=== PATIENT | male | born 1975 | race Caucasian/White ===

== ENCOUNTER 2016-08-24 23:31 | Emergency (ER) | payer OTHER ==
[~2016-08-24] VITALS: Ht 165.1 cm; Wt 68.0 kg
[~2016-08-24 23:31] MED LIST: ALPR2TAB7 PO; AMPH20TA3 PO; GABA400C PO; PARO40TA PO
--- NOTE | 2016-08-25 00:30 | NUR ---
Patient discharged to home in stable conditon. Written and verbal after care instructions given. Patient verbalizes understanding of instructions.
== END 2016-08-25 00:31 | disposition home or self-care (01) ==
LOC: ER 23:31
DX: B30.9 Viral conjunctivitis, unspecified (principal); F32.9 Major depressive disorder, single episode, unspecified
CPT/HCPCS: A4663

== ENCOUNTER 2016-09-28 09:43 | Inpatient (IN) | payer OTHER ==
[~2016-09-28] VITALS: Ht 165.1 cm; Wt 63.5 kg
[2016-09-28] MEDS ORDERED: DIAZ10TA PO (10:22)
[2016-09-28] MEDS ORDERED: IV NORMAL SALINE 1000 ML BAG IV ONE ×2 (10:30→12:15)
[2016-09-28] MEDS ORDERED: DIAZEPAM 2 MG TABLET PO ONE (10:30)
[2016-09-28 10:41] LABS: EOSINOPHILS # (AUTO) 0.1 K/uL (0.0-0.7); EOSINOPHILS % (AUTO) 0.5 % (0.0-7.0); HEMOGLOBIN 17.3 G/DL (14.0-18.0)
[2016-09-28] MEDS ORDERED: DIAZEPAM 5 MG TABLET ONE (10:44)
[2016-09-28 10:45] LABS: BASOPHILS # (AUTO) 0.3 K/uL (0.0-8.0); BASOPHILS % (AUTO) 1.1 % (0.0-2.0); HEMATOCRIT 49.5 % (40-50); LYMPHOCYTES # (AUTO) 0.7 K/UL (0.8-4.8); LYMPHOCYTES % (AUTO) 2.5 % (20.5-51.5); MEAN CORPUSCULAR HEMOGLOBIN 30.7 UUG (27.0-31.0); MEAN CORPUSCULAR HGB CONC 35 g/dL (32.0-37.0); MONOCYTES % (AUTO) 3.9 % (0.0-11.0); NEUTROPHILS # (AUTO) 24.2 K/UL (1.8-8.9); PLATELET COUNT (AUTO) 279 K/UL (150-450); RED BLOOD CELL COUNT(AUTO) 5.62 MIL/UL (4.7-6.1)
[2016-09-28 10:47] LABS: CREATININE 1.3 mg/dL (0.6-1.3); POTASSIUM 4.6 mmol/L (3.5-5.1)
[2016-09-28 10:54] LABS: BILIRUBIN,DIRECT 0.2 mg/dL (0.0-0.2); BILIRUBIN,TOTAL 1.4 mg/dL (0.1-1.0); TOTAL PROTEIN, SERUM 6.7 g/dL (6.4-8.2); WHITE BLOOD COUNT (AUTO) 26.4 K/UL (4.0-11.2)
[2016-09-28 11:33] LABS: BAND % (MANUAL) 62 % (0-10); EOSINOPHILS % (MANUAL) 1 % (0-8); LYMPHOCYTES % (MANUAL) 1 % (20-40); METAMYELOCYTES % 5 % (0-1); MONOCYTES % (MANUAL) 5 % (2-10); NEUTROPHILS % (MANUAL) 26 % (42-75)
[2016-09-28] MEDS ORDERED: METRONIDAZOLE 500 MG/NS 100 ML PIGGYBACK IV ONE (12:30)
[2016-09-28] MEDS ORDERED: METRONIDAZOLE 500 MG/NS 100ML 100 ML IV ONE (12:44)
[2016-09-28] MEDS ORDERED: LEVOFLOXACIN 750 MG/D5W 150 ML PIGGYBACK IV ONE (13:45)
--- NOTE | 2016-09-28 13:46 | NUR ---
Code sepsis activated per Dr Arriaga order.
--- NOTE | 2016-09-28 13:49 | NUR ---
RN TACTICAL RESPONSE GROUP OFFICER NOTIFIED ABOUT CODE SEPSIS.
[2016-09-28] MEDS ORDERED: LEVOFLOXACIN 750MG/D5W 150 ML IV ONE (13:59)
[2016-09-28] MEDS ORDERED: ACETAMINOPHEN 325 MG TABLET PO PRN (14:30)
[2016-09-28] MEDS ORDERED: PANTOPRAZOLE SODIUM 40 MG TABLET.DR PO SCH (14:30)
--- NOTE | 2016-09-28 16:00 | NUR ---
NEW PATIENT FROM ER TO ROOM 219 AWAKE ALERT COOPERATE WELL KEKE WEAK AND DEHYDRATION VS TAKEN STABLE ON FALL PRECAUTION CALL ALBERT IN REACH
[2016-09-28] MEDS: ONDANSETRON 4 MG/2 ML VIAL IV PRN ×2 (16:11→18:38)
[2016-09-28] MEDS ORDERED: ONDANSETRON 4 MG/2 ML VIAL ONE (16:20)
[2016-09-28 16:25] VITALS: BP 114/69
[2016-09-28] MEDS ORDERED: Medication Not On Formulary EA (Amphet Asp/Amphet/D-Amphet (Adderall 20 Mg Tablet) 20 MG PO SCH (17:00)
[2016-09-28] MEDS: IV NS 1000 ML 1,000 ML IV PRN (17:34)
[2016-09-28] MEDS: PAROXETINE HCL 20 MG TABLET PO SCH (17:34)
[2016-09-28] MEDS: GABAPENTIN 400 MG CAPSULE PO SCH ×2 (17:34→23:46)
[2016-09-28] MEDS: DIAZEPAM 10 MG TABLET PO SCH (17:34)
--- NOTE | 2016-09-28 18:30 | NUR ---
RESTING NO ACUTE DISTRESS SAFETY MEASURE PROVIDED CALL LIGHT WITHIN REACH AND INSTRUCTION TO CALL WHEN NEEDED
--- NOTE | 2016-09-28 18:38 | NUR ---
C/O OF N/V MED PRN GIVEN AND URINE SPECIMEN SENT TO LAB ORDER
--- NOTE | 2016-09-28 19:30 | NUR ---
RECEIVED PT IN BED, ASLEEP, AROUSABLE TO TOUCH AND NAME. IN NO ACUTE SIGNS OF DISTRESS. IVF INFUSING. SAFETY OBSERVED. CALL LIGHT WITHIN REACH.
[2016-09-28 20:00] VITALS: BP 99/48
[2016-09-28] MEDS ORDERED: METRONIDAZOLE 500 MG/NS 100ML 500 MG in PREMIXED 1 EACH IV SCH (21:00)
[2016-09-28] MEDS: METRONIDAZOLE 500 MG/NS 100ML 500 MG in PREMIXED 1 EACH IV SCH (21:28)
[2016-09-28] MEDS: MORPHINE SULFATE 2 MG/1 ML DISP.SYRIN IV PRN (21:42)
[2016-09-28 22:09] LABS: *BILIRUBIN,URIN NEGATIVE (NEGATIVE); *BLOOD, URINE NEGATIVE (NEGATIVE); *CLARITY,URINE CLEAR (CLEAR); *COLOR,URINE YELLOW (YELLOW); *KETONES,URINE NEGATIVE (NEGATIVE); *PROTEIN,URINE NEGATIVE (NEGATIVE); *UROBILINOGEN,URINE 0.2 E.U./dl (NORMAL); LEUKOCYTE ESTERASE ,URINE NEGATIVE (NEGATIVE); NITRITE, URINE NEGATIVE (NEGATIVE); PH,URINE 6.5 (5.0-8.0); UGLUCOSE NEGATIVE (NEGATIVE)
[2016-09-28 22:15] LABS: BACTERIA,URINE NONE SEEN /HPF (NONE SEEN); RBC,URINE 0-3 /HPF (0-3); SQUAMOUS EPITHELIAL CELL,UR NONE SEEN /HPF (NONE SEEN); WBC,URINE 0-3 /HPF (0-3)
[2016-09-29] VITALS (10 sets, daily range): BP systolic 85–115; BP diastolic 41–64
[2016-09-29] MEDS: IV NS 1000 ML 1,000 ML IV PRN ×2 (04:50→21:09)
[2016-09-29] MEDS: GABAPENTIN 400 MG CAPSULE PO SCH ×3 (05:53→17:27)
[2016-09-29] MEDS: METRONIDAZOLE 500 MG/NS 100ML 500 MG in PREMIXED 1 EACH IV SCH (05:53)
[2016-09-29] MEDS: PANTOPRAZOLE SODIUM 40 MG TABLET.DR PO SCH (06:01)
--- NOTE | 2016-09-29 06:25 | NUR ---
END OF SHIFT NOTE: PT SLEPT MOST SHIFT. C/O HEADACHE LAST NIGHT, WAS GIVEN MS 2MG REQUESTED AND PRESCRIBED. NO FURTHER C/O PAIN AT THIS TIME. IVF STILL INFUSING. HAD BM, LIQUID IN CONSISTENCY, X3. PT IS AMBULATORY WITH STANDBY ASSISTANCE. SAFETY MAINTAINED. CALL LIGHT WITHIN REACH.
[2016-09-29 07:19] LABS: BILIRUBIN,TOTAL 0.6 mg/dL (0.2-1.0); CREATININE 0.9 mg/dL (0.6-1.3); MAGNESIUM 1.8 mg/dL (1.8-2.4); PHOSPHOROUS 1.8 mg/dL (2.5-4.9); POTASSIUM 3.6 mmol/L (3.5-5.1); TOTAL PROTEIN, SERUM 4.9 g/dL (6.4-8.2)
[2016-09-29 07:21] LABS: BASOPHILS % (AUTO) 0.1 % (0.0-2.0); EOSINOPHILS # (AUTO) 0.7 K/uL (0.0-0.7); EOSINOPHILS % (AUTO) 4.1 % (0.0-7.0); LYMPHOCYTES # (AUTO) 0.7 K/UL (0.8-4.8); LYMPHOCYTES % (AUTO) 4.5 % (20.5-51.5); MEAN CORPUSCULAR HEMOGLOBIN 30.3 UUG (27.0-31.0); MEAN CORPUSCULAR HGB CONC 34 g/dL (32.0-37.0); MEAN CORPUSCULAR VOLUME 89.3 FL (82.0-92.0); MONOCYTES # (AUTO) 0.4 K/UL (0.1-1.30); MONOCYTES % (AUTO) 2.7 % (0.0-11.0); NEUTROPHILS # (AUTO) 14.2 K/UL (1.8-8.9); NEUTROPHILS % (AUTO) 88.6 % (38.5-71.5); PLATELET COUNT (AUTO) 244 K/UL (150-450)
[2016-09-29 07:24] LABS: RED BLOOD CELL COUNT(AUTO) 3.94 MIL/UL (4.7-6.1)
[2016-09-29 07:25] LABS: HEMATOCRIT 35.2 % (40-50); HEMOGLOBIN 11.9 G/DL (14.0-18.0)
[2016-09-29 07:33] LABS: THYROID STIMULATING HORMONE 1.318 mIU/mL (0.358-3.740)
[2016-09-29] MEDS: PAROXETINE HCL 20 MG TABLET PO SCH (08:21)
[2016-09-29] MEDS: DIAZEPAM 10 MG TABLET PO SCH ×2 (08:24→17:28)
[2016-09-29] MEDS: MORPHINE SULFATE 2 MG/1 ML DISP.SYRIN IV PRN ×3 (08:25→21:38)
[2016-09-29] MEDS: ONDANSETRON 4 MG/2 ML VIAL IV PRN (08:42)
[2016-09-29] MEDS ORDERED: IV NORMAL SALINE 500 ML BAG IV ONE (09:45)
[2016-09-29] MEDS ORDERED: IV NORMAL SALINE 500 ML IV ONE (09:45)
--- NOTE | 2016-09-29 10:09 | NUR ---
NS 500 BOLUS STARTED ORDERED PHOS LEVEL IS 1.5 WITH NEW ORDERS AND NOTED.
[2016-09-29 10:44] LABS: BAND % (MANUAL) 30 % (0-10); EOSINOPHILS % (MANUAL) 3 % (0-8); LYMPHOCYTES % (MANUAL) 5 % (20-40); METAMYELOCYTES % 2 % (0-1); MONOCYTES % (MANUAL) 6 % (2-10); NEUTROPHILS % (MANUAL) 54 % (42-75)
[2016-09-29] MEDS: POTASSIUM PHOSPHATE MM 7.5 MMOL in IV DEXTROSE 5% 100 ML IV SCH ×2 (11:47→16:47)
--- NOTE | 2016-09-29 11:50 | NUR ---
CALL RECEIVED FROM [facility] PATIENT IS POSITIVE FOR C DIFF IN STOOL CRESCENCIO DOUBLE SPINDLE SHAPER OPERATOR NOTIFIED STATED OKAY WILL SEE PATIENT.
[2016-09-29] MEDS ORDERED: VANCOMYCIN FOR PO/GT/NG USE PO SCH (12:15)
[2016-09-29 12:18] LABS: IRON, SERUM 17 ug/dL (50-175)
--- NOTE | 2016-09-29 12:20 | NUR ---
BLOOD PRESSURE AT THIS TIME IS 87/49 AND HEART RATE IS 115 PATIENT ALREADY RECEIVED NORMAL SALINE BOLUS ORDERED.NOTIFIED CRESCENCIO CLINICAL EDUCATION COORDINATOR AND SHE STATED TO TRANSFER PATIENT TO ICU/CCU TO START LEVOPHED PATIENT AWARE CALLED THE VICE CHANCELLOR AND NOTIFIED HER FOR BED.
[2016-09-29] MEDS: FERROUS SULFATE 325 MG TABEC PO SCH ×2 (12:28→23:48)
[2016-09-29] MEDS ORDERED: NOREPINEPHRINE BITARTRATE 8 MG in IV DEXTROSE 5% 500 ML IV PRN (12:30)
--- NOTE | 2016-09-29 12:40 | NUR ---
THE DOOR TECHNICIAN IS HERE AND PATIENTS CURRENT BLOOD PRESSURE IS 103/59 AND SHE STATED THAT PATIENTS BLOOD PRESSURE IS BETTER STATED TO OBSERVE THE PATIENT FUTHER.
--- NOTE | 2016-09-29 13:20 | NUR ---
BLOOD PRESSURE IS 110/60 CRESCENCIO DYNAMO REPAIRER NOTIFIED AND SHE STATED TO GO AHEAD AND LEAVE THE PATIENT HERE FOR NOW AND TRANSFER HIM TO TELEMETRY.
[2016-09-29] MEDS ORDERED: LEVOFLOXACIN 500 MG/D5W 500 MG in PREMIXED 1 EACH IV SCH (14:00)
[2016-09-29 17:15] LABS: HEMOGLOBIN 7.5 G/DL (14.0-18.0)
[2016-09-29 17:30] LABS: HEMATOCRIT 21.4 % (40-50)
--- NOTE | 2016-09-29 17:50 | NUR ---
CURRENT BLOOD PRESSURE IS 110/56 REMAIN ON KPHOS ORDERED WITH IVF AT 125ML/H.NEW IV SITE PLACED TO HIS LEFT FOREARM BY ED NURSE PATIENT HAS POOR VEINOUS ACCESS MID LINE RN WAS CALLED BECAUSE 2 NURSES TRIED TO INSERT TO NO AVAIL BUT NOW HE HAS A NEW SITE SO THE MID LINE RN SERVICES WAS CANCELLED AT THIS TIME.
[2016-09-29] MEDS: VANCOMYCIN FOR PO/GT/NG USE PO SCH (17:54)
--- NOTE | 2016-09-29 18:00 | NUR ---
CALL RECEIVED FROM LAB H/H IS 7.5/21.4 CALLED AND NOTIFIED CRESCENCIO AIR CHIEF MARSHAL WITH NEW ORDERS AND NOTED.SHE STATED THAT SHE ALREADY LEFT A MESSAGE WITH THE GI DOCTOR TO SEE PATIENT.
--- NOTE | 2016-09-29 18:12 | NUR ---
PATIENT NOTIFIED THAT HE HAS ORDER FOR BLOOD TRANSFUSSION AND ASKED HIM TO SIGN THE CONSCENT TO TRANSFUSION AND HE STATED THAT HE WILL THINK ABOUT IT BUT FOR NOW DOES NOT THINK THAT HE WILL AGREE TO RECEIVE BLOOD.
--- NOTE | 2016-09-29 18:41 | NUR ---
PATIENT REQUESTED NAUSEA MEDICATION AND I WENT INTO HIS ROOM TO GIVE IT TO HIM AND HE STATED THAT HE VOMITED ALREADY AND DOES NOT NEED IT ANYMORE ENCOURAGED PATIENT TO TAKE IT TO PREVENT FUTHER EMESIS AND HE DECLINED SO I WASTED THE MEDICATION.
--- NOTE | 2016-09-29 19:40 | NUR ---
patient received in bed resting comfortably. AOx3. Pt is receiving potassium in left forearm as ordered, tolerating well. observed to be groggy but arousable, pt requesting pain medication but educated about low blood pressure. No acute distress noted. Bed in low and locked position. No acute distress noted. Will continue to monitor for safety.
--- NOTE | 2016-09-29 21:05 | NUR ---
patient received 1 unit PRBC at this time in right AC, tolerating well. No s/s adverse reaction noted. vital signs being taken as per protocol. No acute distress noted. Will continue to monitor for safety.
[2016-09-29] MEDS: ACIDOPHILUS/BULGARICUS CHEW TAB PO SCH (23:48)
[2016-09-30] VITALS (9 sets, daily range): BP systolic 92–114; BP diastolic 53–70
[2016-09-30] MEDS: GABAPENTIN 400 MG CAPSULE PO SCH ×4 (00:14→17:04)
[2016-09-30] MEDS: METRONIDAZOLE 500 MG/NS 100ML 500 MG in PREMIXED 1 EACH IV SCH ×4 (00:15→21:33)
[2016-09-30] MEDS: VANCOMYCIN FOR PO/GT/NG USE PO SCH ×4 (00:20→17:04)
--- NOTE | 2016-09-30 00:30 | NUR ---
Pt done received 1 unit PRBC via right AC, tolerated well. Vital signs monitored as per hospital protocol. No acute distress noted.
--- NOTE | 2016-09-30 00:47 | NUR ---
Pt currently receiving second unit PRBC as ordered. Initial vital signs taken. No acute distress noted. Pt sleeping at this time but arousable. Will continue to monitor for safety.
[2016-09-30] MEDS: MORPHINE SULFATE 2 MG/1 ML DISP.SYRIN IV PRN ×3 (01:40→11:17)
--- NOTE | 2016-09-30 03:50 | NUR ---
Patient is done receiving second unit PRBC as ordered, pt tolerated well. Vital signs wnl. Currently resting comfortably in bed. No acute distress noted. Will continue to monitor for safety.
[2016-09-30] MEDS: IV NS 1000 ML 1,000 ML IV PRN ×2 (05:57→17:59)
[2016-09-30] MEDS: PANTOPRAZOLE SODIUM 40 MG TABLET.DR PO SCH (06:07)
[2016-09-30 06:54] LABS: EOSINOPHILS # (AUTO) 0.9 K/uL (0.0-0.7); EOSINOPHILS % (AUTO) 4.6 % (0.0-7.0); HEMATOCRIT 41.2 % (40-50); HEMOGLOBIN 14.2 G/DL (14.0-18.0); LYMPHOCYTES # (AUTO) 0.9 K/UL (0.8-4.8); LYMPHOCYTES % (AUTO) 4.7 % (20.5-51.5); MEAN CORPUSCULAR HEMOGLOBIN 30.3 UUG (27.0-31.0); MEAN CORPUSCULAR HGB CONC 34 g/dL (32.0-37.0); MEAN CORPUSCULAR VOLUME 88.2 FL (82.0-92.0); MONOCYTES # (AUTO) 0.5 K/UL (0.1-1.30); MONOCYTES % (AUTO) 2.7 % (0.0-11.0); NEUTROPHILS # (AUTO) 17.6 K/UL (1.8-8.9); PLATELET COUNT (AUTO) 232 K/UL (150-450); RED BLOOD CELL COUNT(AUTO) 4.67 MIL/UL (4.7-6.1); WHITE BLOOD COUNT (AUTO) 19.9 K/UL (4.0-11.2)
[2016-09-30 06:55] LABS: CREATININE 0.7 mg/dL (0.6-1.3); MAGNESIUM 1.8 mg/dL (1.8-2.4); PHOSPHOROUS 2.5 mg/dL (2.5-4.9); POTASSIUM 3.5 mmol/L (3.5-5.1); TOTAL PROTEIN, SERUM 4.8 g/dL (6.4-8.2)
--- NOTE | 2016-09-30 07:08 | NUR ---
Patient awake in bed restless, getting out of bed to use restroom. IV fluids running in right AC. No acute distress noted. Safety measures maintained.
[2016-09-30 07:20] LABS: HEMATOCRIT 39.9 % (40-50); HEMOGLOBIN 14.1 G/DL (14.0-18.0)
[2016-09-30] MEDS: ACIDOPHILUS/BULGARICUS CHEW TAB PO SCH ×2 (08:08→20:18)
[2016-09-30] MEDS: FERROUS SULFATE 325 MG TABEC PO SCH ×2 (08:08→20:18)
[2016-09-30] MEDS: PAROXETINE HCL 20 MG TABLET PO SCH (08:08)
[2016-09-30] MEDS: DIAZEPAM 10 MG TABLET PO SCH ×2 (08:08→17:04)
--- NOTE | 2016-09-30 08:15 | NUR ---
AWAKE ALERT AND ORIENTED REMAIN ON CONTACT ISOLATION ORDERED AND PATIENT EDUCATED ON GOOD HAND WASHING ESPECIALLY AFTER USING THE BATHROOM AND HE EXPRESSED UNDERSTANDING.REMAIN ON IVF ORDERED TO HIS RIGHT ARM WITH NO S/S OF INFILTERATION AT THIS TIME.S/P BLOOD TRANSFUSSION WITH NO ADVERSE OR ALLERGIC REACTIONS AT THIS TIME DUE MEDICATIONS GIVEN AND MADE COMFORTABLE.
[2016-09-30 08:42] LABS: *OCCULT BLOOD STOOL POSITIVE (NEGATIVE)
--- NOTE | 2016-09-30 09:30 | NUR ---
PATIENT SEEN BY THE GI DR VERDIN WITH NO NEW ORDERS AT THIS TIME.
[2016-09-30 09:40] LABS: NEUTROPHILS % (MANUAL) 65 % (42-75)
[2016-09-30 09:41] LABS: BAND % (MANUAL) 21 % (0-10); EOSINOPHILS % (MANUAL) 4 % (0-8); LYMPHOCYTES % (MANUAL) 7 % (20-40); MONOCYTES % (MANUAL) 3 % (2-10)
--- NOTE | 2016-09-30 10:15 | NUR ---
DR BROOKS ID HERE TO SEE PATIENT WITH NEW ORDERS AND NOTED.
--- NOTE | 2016-09-30 11:29 | NUR ---
PATIENT SEEN BY DR KHAN WITH NEW ORDERS AND NOTED
[2016-09-30] MEDS ORDERED: MORPHINE SULFATE 2 MG/1 ML DISP.SYRIN IV PRN (14:30)
[2016-09-30] MEDS ORDERED: MORPHINE SULFATE 2 MG/1 ML DISP.SYRIN IV ONE (14:30)
--- NOTE | 2016-09-30 14:30 | NUR ---
PATIENT IS STANDING IN THE MIDDLE OF THE HALLWAY YELLING AND SCREAMING AT THE TOP OF HIS VOICE HE WAS GIVEN MORPHINE AT AFTER 1100 HIS ORDER IS Q4H PATIENT STATED THAT THIS PAIN IS UNBEARABLE AND UNABLE TO WAIT FOR ONE MORE HOUR SO I CALLED DR KHAN SPOKE WITH HIM WITH THE ORDER CHANGED TI INCREASE DOSE AND DECREASE FREQUENCY AND NOTED.
[2016-09-30] MEDS: MORPHINE SULFATE 4 MG/1 ML DISP.SYRIN IV PRN ×2 (17:58→21:32)
--- NOTE | 2016-09-30 18:00 | NUR ---
PATIENT CONTINUE TO REQUIRE PAIN MEDICATIONS ORDERED GETS ANGRY AND SCREAMS FOR THE MEDICATION TO BE BROUGHT TO HIM STATED WANTS TO BE SLEEPING ALL THE TIME PATIENT EDUCATED ON MEDICATION SIDE EFFECTS ETC AND HE EXPRESSED UNDERSTANDING.
--- NOTE | 2016-09-30 20:00 | NUR ---
AWAKE,ALERT,MOTHER CAME TO VISIT SON.MOTHER WANTS MORE MEDICATION,MORE VALIUM AND PAIN MEDICATION,CALLED DR KHAN,NO MEDICATIONS ORDERED,PT SLEEPS ON AND OFF.PT WAS TRANSFERRED TO ANOTHER ROOM ,COMPLAINT OF ROOMMATE TOO NOISY.MOTHER AT THE DOORGIVING EMOTIONAL SUPPORT TO HIS SON.PT CONTINOUS TO HAVE LOOSE MOVEMENT.
--- NOTE | 2016-09-30 21:00 | NUR ---
DR MARQUEZ SEEN PT,TALK WITH DR MARQUEZ.
[2016-10-01] MEDS: GABAPENTIN 400 MG CAPSULE PO SCH ×5 (00:17→23:17)
[2016-10-01] MEDS: VANCOMYCIN FOR PO/GT/NG USE PO SCH ×5 (00:17→23:17)
[2016-10-01] MEDS: MORPHINE SULFATE 4 MG/1 ML DISP.SYRIN IV PRN ×7 (00:52→22:38)
[2016-10-01] MEDS: IV NS 1000 ML 1,000 ML IV PRN ×2 (01:43→20:48)
[2016-10-01] MEDS: METRONIDAZOLE 500 MG/NS 100ML 500 MG in PREMIXED 1 EACH IV SCH ×3 (05:27→22:23)
[2016-10-01] MEDS: PANTOPRAZOLE SODIUM 40 MG TABLET.DR PO SCH (05:28)
[2016-10-01 05:52] VITALS: BP 114/76
[2016-10-01 06:24] LABS: CREATININE 0.7 mg/dL (0.6-1.3); POTASSIUM 3.5 mmol/L (3.5-5.1)
[2016-10-01 06:28] LABS: EOSINOPHILS # (AUTO) 0.7 K/uL (0.0-0.7); HEMATOCRIT 40.9 % (40-50); HEMOGLOBIN 14.5 G/DL (14.0-18.0); LYMPHOCYTES # (AUTO) 1.1 K/UL (0.8-4.8); LYMPHOCYTES % (AUTO) 7.2 % (20.5-51.5); MEAN CORPUSCULAR HGB CONC 35 g/dL (32.0-37.0); MEAN CORPUSCULAR VOLUME 87.6 FL (82.0-92.0); MONOCYTES # (AUTO) 0.6 K/UL (0.1-1.30); MONOCYTES % (AUTO) 3.9 % (0.0-11.0); NEUTROPHILS # (AUTO) 12.4 K/UL (1.8-8.9); NEUTROPHILS % (AUTO) 83.9 % (38.5-71.5); PLATELET COUNT (AUTO) 268 K/UL (150-450); RED BLOOD CELL COUNT(AUTO) 4.67 MIL/UL (4.7-6.1); WHITE BLOOD COUNT (AUTO) 14.8 K/UL (4.0-11.2)
[2016-10-01 08:30] LABS: BAND % (MANUAL) 38 % (0-10); EOSINOPHILS % (MANUAL) 5 % (0-8); LYMPHOCYTES % (MANUAL) 13 % (20-40); MONOCYTES % (MANUAL) 10 % (2-10); NEUTROPHILS % (MANUAL) 34 % (42-75)
[2016-10-01] MEDS: FERROUS SULFATE 325 MG TABEC PO SCH ×2 (09:52→20:22)
[2016-10-01] MEDS: ACIDOPHILUS/BULGARICUS CHEW TAB PO SCH ×2 (09:52→20:22)
[2016-10-01] MEDS: PAROXETINE HCL 20 MG TABLET PO SCH (09:52)
[2016-10-01] MEDS: DIAZEPAM 10 MG TABLET PO SCH ×2 (09:54→15:58)
[2016-10-01 11:52] VITALS: BP 105/69
[2016-10-01 15:57] VITALS: BP 102/62
--- NOTE | 2016-10-01 19:45 | NUR ---
PATIENT IN BED RESTING WITH EYES CLOSED, AWAKENS TO NAME. NO ACUTE DISTRESS NOTED. NO S/S OF RESPIRATORY DISTRESS OBSERVED. IVF INFUSING ORDERED. ON CONTACT ISOLATION FOR C-DIFF OBSERVED AND MAINTAINED. FATHER AT BED SIDE. CALL LIGHT IN REACH AND SAFETY MEASURES IN PLACE. WILL CONTINUE TO MONITOR
[2016-10-01 20:00] VITALS: BP 116/73
[2016-10-02] MEDS: MORPHINE SULFATE 4 MG/1 ML DISP.SYRIN IV PRN ×8 (01:47→23:44)
[2016-10-02] MEDS: GABAPENTIN 400 MG CAPSULE PO SCH ×4 (05:21→23:43)
[2016-10-02] MEDS: VANCOMYCIN FOR PO/GT/NG USE PO SCH ×4 (05:21→23:43)
[2016-10-02] MEDS: METRONIDAZOLE 500 MG/NS 100ML 500 MG in PREMIXED 1 EACH IV SCH ×3 (05:22→21:03)
[2016-10-02] MEDS: IV NS 1000 ML 1,000 ML IV PRN (05:40)
--- NOTE | 2016-10-02 05:50 | NUR ---
PT SLEPT ON AND OFF THROUGH THE NIGHT. NO ACUTE DISTRESS PER SHIFT. NO S/S OF RESPIRATORY DISTRESS NOTED. PAIN MANAGED WITH PRN MED PRESCRIBED. ALL DUE MEDS GIVEN PRESCRIBED. PT COMPLIANT WITH CARE. ALL NEEDS MET. CALL LIGHT IN REACH AND SAFETY MAINTAINED. CONTINUE PAIN MANAGEMENT.
[2016-10-02] MEDS: PANTOPRAZOLE SODIUM 40 MG TABLET.DR PO SCH (06:11)
[2016-10-02 06:27] VITALS: BP 108/69
[2016-10-02 07:39] LABS: HEMATOCRIT 42.1 % (40-50)
[2016-10-02] MEDS: DIAZEPAM 10 MG TABLET PO SCH ×2 (08:14→16:40)
[2016-10-02] MEDS: FERROUS SULFATE 325 MG TABEC PO SCH ×2 (08:14→20:44)
[2016-10-02] MEDS: ACIDOPHILUS/BULGARICUS CHEW TAB PO SCH ×2 (08:14→20:44)
[2016-10-02] MEDS: PAROXETINE HCL 20 MG TABLET PO SCH (08:14)
[2016-10-02 11:52] VITALS: BP 103/69
[2016-10-02 16:10] VITALS: BP 104/63
[2016-10-02] MEDS ORDERED: MISCELLANEOUS MED XX PRN (18:00)
[2016-10-02 19:00] VITALS: BP 99/56
[2016-10-02] MEDS: DIFICID 200 MG TABLET PO SCH (20:44)
[2016-10-03] MEDS: MORPHINE SULFATE 4 MG/1 ML DISP.SYRIN IV PRN ×7 (02:59→21:56)
[2016-10-03 04:00] VITALS: BP 95/59
[2016-10-03] MEDS: PANTOPRAZOLE SODIUM 40 MG TABLET.DR PO SCH (06:34)
[2016-10-03] MEDS: GABAPENTIN 400 MG CAPSULE PO SCH ×4 (06:34→23:19)
[2016-10-03] MEDS: METRONIDAZOLE 500 MG/NS 100ML 500 MG in PREMIXED 1 EACH IV SCH ×3 (06:34→21:25)
[2016-10-03] MEDS: VANCOMYCIN FOR PO/GT/NG USE PO SCH ×4 (06:34→23:19)
--- NOTE | 2016-10-03 06:50 | NUR ---
PT IN BED SLEEPING, RESTED ON AND OFF. NO ACUTE DISTRESS PER SHIFT. COMPLIANT WITH CARE. ALL DUE MEDS GIVEN ORDERED. CONTINUE PAIN MANAGEMENT AND TX. ALL NEEDS MET. CALL LIGHT IN REACH. SAFETY AND COMFORT MAINTAINED.
[2016-10-03 07:12] LABS: BASOPHILS % (AUTO) 0.1 % (0.0-2.0); EOSINOPHILS # (AUTO) 0.7 K/uL (0.0-0.7); EOSINOPHILS % (AUTO) 6.3 % (0.0-7.0); HEMATOCRIT 42.5 % (40-50); LYMPHOCYTES # (AUTO) 1.4 K/UL (0.8-4.8); LYMPHOCYTES % (AUTO) 12.4 % (20.5-51.5); MEAN CORPUSCULAR HEMOGLOBIN 29.3 UUG (27.0-31.0); MEAN CORPUSCULAR HGB CONC 33 g/dL (32.0-37.0); MEAN CORPUSCULAR VOLUME 89.1 FL (82.0-92.0); MONOCYTES # (AUTO) 0.8 K/UL (0.1-1.30); NEUTROPHILS # (AUTO) 8.7 K/UL (1.8-8.9); NEUTROPHILS % (AUTO) 74.2 % (38.5-71.5); RED BLOOD CELL COUNT(AUTO) 4.78 MIL/UL (4.7-6.1); WHITE BLOOD COUNT (AUTO) 11.6 K/UL (4.0-11.2)
[2016-10-03 07:24] LABS: PLATELET COUNT (AUTO) 399 K/UL (150-450)
[2016-10-03 07:29] LABS: BILIRUBIN,TOTAL 0.6 mg/dL (0.2-1.0); CREATININE 0.8 mg/dL (0.6-1.3); POTASSIUM 4.6 mmol/L (3.5-5.1); TOTAL PROTEIN, SERUM 5.2 g/dL (6.4-8.2)
[2016-10-03] MEDS: DIFICID 200 MG TABLET PO SCH ×2 (10:00→21:25)
--- NOTE | 2016-10-03 10:00 | NUR ---
Woke up, ate breakfast. Complaining of abdominal pain.
[2016-10-03] MEDS: FERROUS SULFATE 325 MG TABEC PO SCH ×2 (10:01→21:25)
[2016-10-03] MEDS: ACIDOPHILUS/BULGARICUS CHEW TAB PO SCH ×2 (10:01→21:25)
[2016-10-03] MEDS: PAROXETINE HCL 20 MG TABLET PO SCH (10:01)
[2016-10-03] MEDS: DIAZEPAM 10 MG TABLET PO SCH ×2 (10:01→18:01)
--- NOTE | 2016-10-03 11:00 | NUR ---
Spoke to father at bedside, discussed patient's condition and plan of care
[2016-10-03 12:09] VITALS: BP 101/64
--- NOTE | 2016-10-03 14:00 | NUR ---
Sleeping after pain medication, comfortable
[2016-10-03 16:10] VITALS: BP 115/68
--- NOTE | 2016-10-03 18:00 | NUR ---
Complaining of severe pain, verbalizing that the pain medication only worked for 2 hours, asking for more pain medication. Dr. Recinos informed.
--- NOTE | 2016-10-03 19:30 | NUR ---
SLEEPING AT THIS TIME. NO ACUTE DISTRESS NOTED. SAFETY MAINTAINED. CALL LIGHT WITHIN REACH. WILL MONITOR
[2016-10-03 20:00] VITALS: BP 103/68
[2016-10-04] MEDS: MORPHINE SULFATE 4 MG/1 ML DISP.SYRIN IV PRN ×7 (01:52→22:42)
[2016-10-04 04:47] VITALS: BP 106/71
[2016-10-04] MEDS: VANCOMYCIN FOR PO/GT/NG USE PO SCH ×4 (05:19→23:44)
[2016-10-04] MEDS: METRONIDAZOLE 500 MG/NS 100ML 500 MG in PREMIXED 1 EACH IV SCH ×3 (05:19→21:05)
[2016-10-04] MEDS: GABAPENTIN 400 MG CAPSULE PO SCH ×4 (05:19→23:44)
--- NOTE | 2016-10-04 06:24 | NUR ---
SLEPT INTERMITTENTLY DURING THE SHIFT. FREQUENTLY ASK FOR PAIN MEDICATION ORDERED, PAIN CONTROLLED. ALL DUE MEDS GIVEN ORDERED. NEEDS ATTENDED. SAFETY MAINTAINED. CALL LIGHT WITHIN REACH
[2016-10-04] MEDS: PANTOPRAZOLE SODIUM 40 MG TABLET.DR PO SCH (06:31)
[2016-10-04 07:13] LABS: EOSINOPHILS # (AUTO) 0.8 K/uL (0.0-0.7); EOSINOPHILS % (AUTO) 7.1 % (0.0-7.0); HEMATOCRIT 44.4 % (40-50); HEMOGLOBIN 14.8 G/DL (14.0-18.0); LYMPHOCYTES # (AUTO) 1.2 K/UL (0.8-4.8); LYMPHOCYTES % (AUTO) 11.5 % (20.5-51.5); MEAN CORPUSCULAR HEMOGLOBIN 29.8 UUG (27.0-31.0); MEAN CORPUSCULAR HGB CONC 33 g/dL (32.0-37.0); MEAN CORPUSCULAR VOLUME 89.7 FL (82.0-92.0); MONOCYTES # (AUTO) 0.6 K/UL (0.1-1.30); MONOCYTES % (AUTO) 5.8 % (0.0-11.0); NEUTROPHILS # (AUTO) 8.2 K/UL (1.8-8.9); NEUTROPHILS % (AUTO) 75.6 % (38.5-71.5); PLATELET COUNT (AUTO) 447 K/UL (150-450); RED BLOOD CELL COUNT(AUTO) 4.95 MIL/UL (4.7-6.1); WHITE BLOOD COUNT (AUTO) 10.8 K/UL (4.0-11.2)
[2016-10-04 07:18] LABS: POTASSIUM 4.4 mmol/L (3.5-5.1)
[2016-10-04] MEDS: DIFICID 200 MG TABLET PO SCH ×2 (09:45→21:05)
[2016-10-04] MEDS: DIAZEPAM 10 MG TABLET PO SCH ×2 (09:45→17:29)
[2016-10-04] MEDS: ACIDOPHILUS/BULGARICUS CHEW TAB PO SCH ×2 (09:45→21:05)
[2016-10-04] MEDS: FERROUS SULFATE 325 MG TABEC PO SCH ×2 (09:46→21:05)
[2016-10-04] MEDS: PAROXETINE HCL 20 MG TABLET PO SCH (09:46)
[2016-10-04 11:05] VITALS: BP 101/68
[2016-10-04 15:22] VITALS: BP 100/56
--- NOTE | 2016-10-04 18:14 | NUR ---
patient alert and ambulatory. complaints of generalised pain, meds given as prn for pain. mostly this patient irritated due to pain. Also had bowel of 4 times patient claims moderate in amt. continue to monitor.
[2016-10-04 20:00] VITALS: BP 100/61
--- NOTE | 2016-10-04 21:30 | NUR ---
PT'S A/A/O X4,STATED THAT "I HAVE A DIARRHEA.I WANT YOU TO CHECK MY STOOL",IT'S FORM W/GREENISH COLOR;EDUCATED TO PT DUE TO S/E OF IRON THAT PT TOOK;HE VERBALIZED UNDERSTANDING AND COOPERATIVE NOTED.SNACK'S GIVEN TO PT REQUEST;PT'S ABLE TO TOLERATED WELL.CALL-LIGHT WITHIN REACH.
[2016-10-05] MEDS: MORPHINE SULFATE 4 MG/1 ML DISP.SYRIN IV PRN ×6 (02:18→20:40)
[2016-10-05 04:22] VITALS: BP 98/61
[2016-10-05] MEDS: METRONIDAZOLE 500 MG/NS 100ML 500 MG in PREMIXED 1 EACH IV SCH ×3 (05:29→21:13)
[2016-10-05] MEDS: VANCOMYCIN FOR PO/GT/NG USE PO SCH ×4 (05:29→23:38)
[2016-10-05] MEDS: GABAPENTIN 400 MG CAPSULE PO SCH ×4 (05:29→23:37)
--- NOTE | 2016-10-05 05:40 | NUR ---
PT SLEPT ON/OFF DURING OF THE NIGHT,PAIN'S CONTROLLED W/MORPHINE EVERY 3 HOURS ORDER,PT TOLERATED WELL.FLUSHED HL AT THIS TIME AND PT'S SCREAMING AND STATED THAT"IT HURT ME SO BAD.YOU'RE NOT GOING TO PUT IT FOR ME.I WANT THE ITZEL FROM ER",CALLED ALEE/DISTRICT ATTORNEY TO STARTED IV,HE'S ABLE TO GET AT LEFT HAND G#22,AFTER PT GOT MORPHINE,HE'S SCREAMING AND STARTED PULLING OUT HL,D/C AT THIS TIME.CALLED MAZIN/Hillary.Cellophane Bag Machine Operator TO STARTED @ RIGHT FOREARM G#20 AND GAVE FLAGYL ORDER.PT'S CALM DOWN AT THIS TIME.KEPT CALL-LIGHT WITHIN REACH.CONTINUED MONITORING TO PT.
[2016-10-05] MEDS: PANTOPRAZOLE SODIUM 40 MG TABLET.DR PO SCH (06:25)
--- NOTE | 2016-10-05 08:00 | NUR ---
Pt is in no acute distress. Call light is within reach. Pt denies any c/o pain. Pt on isolation secondary to Cdiff. Discussed plan of care with pt re: proper pain management and fall precautions. Instructed pt not to get oob after being given MS for pain and to call nursing for assistance - pt agreeable with plan of care.
[2016-10-05] MEDS: ACIDOPHILUS/BULGARICUS CHEW TAB PO SCH ×2 (09:03→20:36)
[2016-10-05] MEDS: DIAZEPAM 10 MG TABLET PO SCH ×2 (09:03→16:57)
[2016-10-05] MEDS: FERROUS SULFATE 325 MG TABEC PO SCH ×2 (09:03→20:36)
[2016-10-05] MEDS: PAROXETINE HCL 20 MG TABLET PO SCH (09:03)
[2016-10-05] MEDS: DIFICID 200 MG TABLET PO SCH ×2 (09:09→20:37)
--- NOTE | 2016-10-05 10:00 | NUR ---
Dr pack ID saw pt discussed plan with pt.
[2016-10-05 11:30] VITALS: BP 104/66
--- NOTE | 2016-10-05 13:30 | NUR ---
Pt is in no acute distress. pt woken up and states that he wants to leave AMA. Discussed with pt risk and benefits of leaving hospital. Pt decides to stay. Call light is within reach.
[2016-10-05 15:14] VITALS: BP 92/49
--- NOTE | 2016-10-05 16:30 | NUR ---
Called Christen Alvarado at elevator with pt and his mother secondary to loud yelling from pt claiming that his mother took pts own prescription medicine. Pt claims "my mom got my medications from my pharmacy." Guards came up to the christen alvarado but stated that " they (guards) can't physically stop the mother from leaving" When Danita nursing supervisor hot strip mill came up mother has left the building. Danita Spoke with pt and father at bedside. Ordered social media content specialist consult for pt's safety. Message left on social media content specialist Iveth's Hai voicemail to evaluate the situation. Charge nurse aware of situation social media content specialist is to fill out possible APS situation. Call light is within reach.
--- NOTE | 2016-10-05 18:11 | NUR ---
Pt is in no acute distress. Call light is within reach. Pt's pain managed with morphine 3 mg. Plan of care effective. No fall noted this shift.
[2016-10-05 20:00] VITALS: BP 102/65
[2016-10-05] MEDS: NEOMY/BACITRAC/POLYMI OINT 28.35 GM TUBE TOP SCH (20:48)
[2016-10-06] MEDS: MORPHINE SULFATE 4 MG/1 ML DISP.SYRIN IV PRN ×5 (03:49→21:37)
[2016-10-06 04:56] VITALS: BP 98/53
[2016-10-06] MEDS: VANCOMYCIN FOR PO/GT/NG USE PO SCH ×3 (06:10→17:39)
[2016-10-06] MEDS: PANTOPRAZOLE SODIUM 40 MG TABLET.DR PO SCH (06:10)
[2016-10-06] MEDS: GABAPENTIN 400 MG CAPSULE PO SCH ×3 (06:10→17:38)
[2016-10-06] MEDS: METRONIDAZOLE 500 MG/NS 100ML 500 MG in PREMIXED 1 EACH IV SCH ×3 (06:10→21:37)
--- NOTE | 2016-10-06 06:52 | NUR ---
PT IN BED RESTING, SLEPT INTERMITTENTLY. IN NO ACUTE SIGNS SIGNS OF DISTRESS. PAIN MANAGEMENT PROVIDED FOR C/O GENERALIZED PAIN WITH RELIEF ON AND OFF. CONTINUE ON CONTACT ISOLATION FOR CDIFF. SAFETY OBSERVED. CALL LIGHT WITHIN REACH.
[2016-10-06 06:55] LABS: BASOPHILS % (AUTO) 0.1 % (0.0-2.0); EOSINOPHILS # (AUTO) 0.5 K/uL (0.0-0.7); EOSINOPHILS % (AUTO) 4.3 % (0.0-7.0); HEMATOCRIT 46.7 % (40-50); HEMOGLOBIN 15.6 G/DL (14.0-18.0); LYMPHOCYTES # (AUTO) 1.7 K/UL (0.8-4.8); LYMPHOCYTES % (AUTO) 13.8 % (20.5-51.5); MEAN CORPUSCULAR HEMOGLOBIN 29.8 UUG (27.0-31.0); MEAN CORPUSCULAR HGB CONC 34 g/dL (32.0-37.0); MEAN CORPUSCULAR VOLUME 88.8 FL (82.0-92.0); MONOCYTES # (AUTO) 0.8 K/UL (0.1-1.30); MONOCYTES % (AUTO) 6.8 % (0.0-11.0); NEUTROPHILS # (AUTO) 9.4 K/UL (1.8-8.9); PLATELET COUNT (AUTO) 464 K/UL (150-450); RED BLOOD CELL COUNT(AUTO) 5.26 MIL/UL (4.7-6.1); WHITE BLOOD COUNT (AUTO) 12.4 K/UL (4.0-11.2)
[2016-10-06 07:08] LABS: CREATININE 0.9 mg/dL (0.6-1.3); POTASSIUM 4.2 mmol/L (3.5-5.1)
--- NOTE | 2016-10-06 07:47 | NUR ---
RESTING IN BED NO SIGNS OF ACUTE PAIN, NAUSEA AND VOMITING. STILL HAVING EPISODES OF LOOSE STOOL. ISOLATION IN PLACED
[2016-10-06 08:08] LABS: BAND % (MANUAL) 11 % (0-10); BASOPHILS % (MANUAL) 1 % (0-2); EOSINOPHILS % (MANUAL) 4 % (0-8); LYMPHOCYTES % (MANUAL) 12 % (20-40); METAMYELOCYTES % 1 % (0-1); MONOCYTES % (MANUAL) 10 % (2-10); NEUTROPHILS % (MANUAL) 61 % (42-75)
[2016-10-06] MEDS: DIAZEPAM 10 MG TABLET PO SCH ×2 (09:01→17:38)
[2016-10-06] MEDS: PAROXETINE HCL 20 MG TABLET PO SCH (09:01)
[2016-10-06] MEDS: FERROUS SULFATE 325 MG TABEC PO SCH ×2 (09:01→21:44)
[2016-10-06] MEDS: ACIDOPHILUS/BULGARICUS CHEW TAB PO SCH ×2 (09:01→20:43)
[2016-10-06] MEDS: NEOMY/BACITRAC/POLYMI OINT 28.35 GM TUBE TOP SCH ×2 (09:02→20:43)
[2016-10-06] MEDS: DIFICID 200 MG TABLET PO SCH ×2 (09:03→20:43)
[2016-10-06 11:41] VITALS: BP 109/49
--- NOTE | 2016-10-06 12:00 | NUR ---
SEEN BY DR KHAN SEE NOTES
--- NOTE | 2016-10-06 13:45 | NUR ---
This riprap placer was updated by the patient's RN yesterday, [place], about the fact that the patient's mother picked up his pain medications and was going to take them for herself. APS report was going to be initiated but the patient said that he does not want to report his mom to APS. Updated [place].
--- NOTE | 2016-10-06 14:40 | NUR ---
The patient's CM from [facility], Rosita Cross [ ext. [phone]], called and stated she has some questions about the patient's transfer. Left a message for her to call back. Awaiting call back. Updated his father, Haley [ ], about the situation. Addendum: 10/06/16 at 1445 by ETIENNE LAWLER [facility] Plan to transfer to [facility] initiated 10/04/16
[2016-10-06 15:27] VITALS: BP 106/56
--- NOTE | 2016-10-06 15:39 | NUR ---
AWAITING PLACEMENT FOR DC PLANNING. SEE CLINICAL REIMBURSEMENT SPECIALIST NOTES
--- NOTE | 2016-10-06 19:00 | NUR ---
PATIENT IN BED ALERT ORIENTED, ON PAIN MANAGEMENT, WITH HELP , REMAIN IN CONTACT ISOLATION FOR CDIFF, NO S/S OF DISTRESS.
[2016-10-06 19:36] VITALS: BP 95/47
[2016-10-07] MEDS: VANCOMYCIN FOR PO/GT/NG USE PO SCH ×5 (00:51→23:39)
[2016-10-07] MEDS: GABAPENTIN 400 MG CAPSULE PO SCH ×5 (00:51→23:39)
[2016-10-07] MEDS: MORPHINE SULFATE 4 MG/1 ML DISP.SYRIN IV PRN ×4 (01:00→17:21)
[2016-10-07 04:00] VITALS: BP 103/70
[2016-10-07] MEDS: METRONIDAZOLE 500 MG/NS 100ML 500 MG in PREMIXED 1 EACH IV SCH ×3 (06:44→21:12)
[2016-10-07] MEDS: PANTOPRAZOLE SODIUM 40 MG TABLET.DR PO SCH (06:44)
--- NOTE | 2016-10-07 07:19 | NUR ---
PATIENT ALERT ORIENTED, ON PAIN MANAGEMENT, FOR ABDOMINAL PAIN, REMAIN IN CONTACT ISOLATION, HAS MULTIPLE DIARRHEA, MD AWARE, CONT TO MONITOR.
[2016-10-07] MEDS: FERROUS SULFATE 325 MG TABEC PO SCH ×2 (08:00→20:10)
[2016-10-07] MEDS: DIAZEPAM 10 MG TABLET PO SCH ×2 (08:00→17:09)
[2016-10-07] MEDS: PAROXETINE HCL 20 MG TABLET PO SCH (08:00)
[2016-10-07] MEDS: DIFICID 200 MG TABLET PO SCH ×2 (08:00→20:10)
[2016-10-07] MEDS: ACIDOPHILUS/BULGARICUS CHEW TAB PO SCH ×2 (08:00→20:10)
[2016-10-07] MEDS: NEOMY/BACITRAC/POLYMI OINT 28.35 GM TUBE TOP SCH ×2 (08:03→20:10)
[2016-10-07 10:54] LABS: BASOPHILS # (AUTO) 0.2 K/uL (0.0-8.0); BASOPHILS % (AUTO) 1.5 % (0.0-2.0); EOSINOPHILS # (AUTO) 0.4 K/uL (0.0-0.7); EOSINOPHILS % (AUTO) 2.9 % (0.0-7.0); HEMATOCRIT 50.6 % (40-50); HEMOGLOBIN 16.7 G/DL (14.0-18.0); LYMPHOCYTES % (AUTO) 15.5 % (20.5-51.5); MEAN CORPUSCULAR HEMOGLOBIN 29.3 UUG (27.0-31.0); MEAN CORPUSCULAR HGB CONC 33 g/dL (32.0-37.0); MEAN CORPUSCULAR VOLUME 88.6 FL (82.0-92.0); MONOCYTES # (AUTO) 0.7 K/UL (0.1-1.30); MONOCYTES % (AUTO) 5.2 % (0.0-11.0); NEUTROPHILS # (AUTO) 9.3 K/UL (1.8-8.9); NEUTROPHILS % (AUTO) 74.9 % (38.5-71.5); PLATELET COUNT (AUTO) 565 K/UL (150-450); RED BLOOD CELL COUNT(AUTO) 5.71 MIL/UL (4.7-6.1); WHITE BLOOD COUNT (AUTO) 12.6 K/UL (4.0-11.2)
[2016-10-07 11:22] LABS: BAND % (MANUAL) 14 % (0-10); EOSINOPHILS % (MANUAL) 4 % (0-8); LYMPHOCYTES % (MANUAL) 22 % (20-40); MONOCYTES % (MANUAL) 3 % (2-10); NEUTROPHILS % (MANUAL) 57 % (42-75)
[2016-10-07 12:00] VITALS: BP 94/64
[2016-10-07 16:15] VITALS: BP 91/46
--- NOTE | 2016-10-07 17:36 | NUR ---
DR EPPS VISITING NO NEW ORDERS
--- NOTE | 2016-10-07 18:21 | NUR ---
STABLE ON Q1 HOUR ROUNDS CONTACT ISOLATION MAINTAINED. DR BOLAND VISITING
[2016-10-07 19:00] VITALS: BP 131/78
[2016-10-07] MEDS: ONDANSETRON 4 MG/2 ML VIAL IV PRN (20:24)
[2016-10-08] MEDS: MORPHINE SULFATE 4 MG/1 ML DISP.SYRIN IV PRN ×5 (03:17→22:09)
[2016-10-08 04:00] VITALS: BP 123/82
[2016-10-08] MEDS: GABAPENTIN 400 MG CAPSULE PO SCH ×3 (05:46→18:03)
[2016-10-08] MEDS: METRONIDAZOLE 500 MG/NS 100ML 500 MG in PREMIXED 1 EACH IV SCH ×3 (05:46→22:59)
[2016-10-08] MEDS: VANCOMYCIN FOR PO/GT/NG USE PO SCH ×3 (05:46→18:12)
[2016-10-08] MEDS: PANTOPRAZOLE SODIUM 40 MG TABLET.DR PO SCH (06:08)
--- NOTE | 2016-10-08 06:46 | NUR ---
PT IN BED, IN NO ACUTE SIGNS OF DISTRESS NOTED. STILL ON ATB IV/PO, ON CDIFF CONTACT ISOLATION. PAIN MANAGEMENT PROVIDED FOR C/O GEN PAIN , WITH SOME RELIEF. SAFETY MAINTAINED.
--- NOTE | 2016-10-08 07:00 | NUR ---
PT IS LAYING IN BED COMFORTABLY. NO S/S OF RESPIRATORY DISTRESS NOTED. IV INTACT/PATENT. ALL SAFETY NEEDS ARE MET. NO PAIN NOTED/REPORTED. WILL CONTINUE TO MONITOR.
[2016-10-08] MEDS: DIFICID 200 MG TABLET PO SCH ×2 (08:31→20:41)
[2016-10-08] MEDS: NEOMY/BACITRAC/POLYMI OINT 28.35 GM TUBE TOP SCH ×2 (08:32→20:41)
[2016-10-08] MEDS: FERROUS SULFATE 325 MG TABEC PO SCH ×2 (08:32→20:41)
[2016-10-08] MEDS: ACIDOPHILUS/BULGARICUS CHEW TAB PO SCH ×2 (08:32→20:41)
[2016-10-08] MEDS: PAROXETINE HCL 20 MG TABLET PO SCH (08:32)
[2016-10-08] MEDS: DIAZEPAM 10 MG TABLET PO SCH ×2 (09:34→17:00)
[2016-10-08 11:04] VITALS: BP 119/76
[2016-10-08 15:08] VITALS: BP 101/48
--- NOTE | 2016-10-08 19:19 | NUR ---
PT IS LAYING IN BED COMFORTABLY. NO S/S OF RESPIRATORY DISTRESS NOTED. NO PAIN REPORTED. ALL SAFETY NEEDS ARE MET. IV INTACT/PATENT.
--- NOTE | 2016-10-08 19:40 | NUR ---
Patient received sitting up in bed, no acute distress noted. pt lung sounds clear through out with auscultation. vital signs wnl. hep lock in right hand, intact. Bed in low and locked position. Call light within reach.
[2016-10-08 20:00] VITALS: BP 111/66
--- NOTE | 2016-10-08 22:00 | NUR ---
Patient IV site leaking in right hand, removed and IV restarted in left forearm, pt tolerated well. pt compliant with medications at bedtime. No acute distress noted. Morphine given prn for c/o pain. Will continue to monitor for safety.
[2016-10-08] MEDS: ONDANSETRON 4 MG/2 ML VIAL IV PRN (23:55)
[2016-10-09] MEDS: VANCOMYCIN FOR PO/GT/NG USE PO SCH ×3 (00:21→11:17)
[2016-10-09] MEDS: GABAPENTIN 400 MG CAPSULE PO SCH ×3 (00:21→11:17)
--- NOTE | 2016-10-09 00:52 | NUR ---
Patient awake and sitting up in bed. Tolerated medications at midnight well. No acute distress noted. Will continue to monitor for safety.
[2016-10-09 04:25] VITALS: BP 115/76
[2016-10-09] MEDS: MORPHINE SULFATE 4 MG/1 ML DISP.SYRIN IV PRN ×2 (04:39→14:14)
[2016-10-09] MEDS: METRONIDAZOLE 500 MG/NS 100ML 500 MG in PREMIXED 1 EACH IV SCH ×2 (06:10→13:19)
[2016-10-09] MEDS: PANTOPRAZOLE SODIUM 40 MG TABLET.DR PO SCH (06:10)
--- NOTE | 2016-10-09 06:38 | NUR ---
Patient awake intermittently through out the night. Patient c/o pain in abdomen and received morphine as ordered. Compliant with medications this am. No acute distress noted. Safety measures maintained.
[2016-10-09] MEDS: PAROXETINE HCL 20 MG TABLET PO SCH (08:21)
[2016-10-09] MEDS: ACIDOPHILUS/BULGARICUS CHEW TAB PO SCH (08:21)
[2016-10-09] MEDS: FERROUS SULFATE 325 MG TABEC PO SCH (08:21)
[2016-10-09] MEDS: DIAZEPAM 10 MG TABLET PO SCH (08:21)
[2016-10-09] MEDS: DIFICID 200 MG TABLET PO SCH (08:21)
[2016-10-09] MEDS: NEOMY/BACITRAC/POLYMI OINT 28.35 GM TUBE TOP SCH (08:21)
[2016-10-09 11:04] VITALS: BP 110/68
--- NOTE | 2016-10-09 12:26 | NUR ---
The patient will be discharged today to his father's home [[id number]; [place] [address]] [address] Stout. Both the patient and his father, Haley [ ], are aware of his discharge plan. They will follow-up with his PCP, Dr. Tristan Delarosa [ ], at [facility]. Had been in contact with his [facility] CM, Quinton Cross [ ext. [phone]], and she referred the patient to [facility] [ ; ]. Spoke to Juliano from [facility] and he confirmed that they will follow-up the patient tomorrow. His RN, Kandis, is aware of his discharge plan.
[2016-10-09] MEDS ORDERED: METR500T PO (13:51)
[2016-10-09] MEDS ORDERED: Vancomycin Hcl PO (13:51)
[2016-10-09] MEDS ORDERED: FIDA200T PO (13:51)
[2016-10-09] MEDS ORDERED: ACID1TAB4 PO (13:51)
[2016-10-09] MEDS ORDERED: MULT-1045 PO (13:51)
[2016-10-09] MEDS ORDERED: Acetaminophen PO (13:51)
[2016-10-09] MEDS ORDERED: HYDR-3326 PO (13:51)
[2016-10-09 15:18] VITALS: BP 108/72
--- NOTE | 2016-10-09 16:20 | NUR ---
DISCHARGE NOTE: PT IS READY TO DISCHARGE. PRESCRIPTION IS GIVEN TO THE PT. PHARMACIST PROVIDED MED INFORMATION. IV/WRIST BAND IS REMOVED. NO S/S OF RESPIRATORY DISTRESS NOTED. ALL SAFETY NEEDS ARE MET. NO PAIN REPORTED. EDUCATION IS PROVIDED. FATHER BY THE PT, LEFT VIA WHEELCHAIR WITH CAR.
== END 2016-10-09 16:25 | disposition home health service (06) | DRG 720 ==
LOC: ER 09:43 → MED 16:04 → TELE 09-29 13:30 → MED 10-01 13:57
PROVIDERS: ADMIT Nurse Practitioner Acute Care; ATTEND Nurse Practitioner Acute Care
PROC: 30233N1 Transfusion of Nonautologous Red Blood Cells into Peripheral Vein, Percutaneous Approach (ICD-10-PCS; principal; 2016-09-29)
DX: A41.9 Sepsis, unspecified organism (principal); N17.0 Acute kidney failure with tubular necrosis; R65.21 Severe sepsis with septic shock; E43 Unspecified severe protein-calorie malnutrition; E87.2 Acidosis; A04.7 Enterocolitis due to Clostridium difficile; R17 Unspecified jaundice; E86.0 Dehydration; E83.39 Other disorders of phosphorus metabolism; E83.51 Hypocalcemia; F43.10 Post-traumatic stress disorder, unspecified; N39.0 Urinary tract infection, site not specified; F90.9 Attention-deficit hyperactivity disorder, unspecified type; F32.9 Major depressive disorder, single episode, unspecified; D50.0 Iron deficiency anemia secondary to blood loss (chronic); G89.4 Chronic pain syndrome; K21.9 Gastro-esophageal reflux disease without esophagitis; Z86.19 Personal history of other infectious and parasitic diseases; Z98.1 Arthrodesis status; Z81.8 Family history of other mental and behavioral disorders; X58.XXXS Exposure to other specified factors, sequela; F41.9 Anxiety disorder, unspecified; B30.9 Viral conjunctivitis, unspecified; R73.9 Hyperglycemia, unspecified; M79.2 Neuralgia and neuritis, unspecified; F98.8 Other specified behavioral and emotional disorders with onset usually occurring in childhood and adolescence; Z79.899 Other long term (current) drug therapy; Z79.891 Long term (current) use of opiate analgesic; R59.1 Generalized enlarged lymph nodes
CPT/HCPCS: 36415; 71010; 74000; 83550; 83605; 83735; 84100; 84443; 85018; 85025; 86625; 86850; 86900; 86901; 86920; 87040; 87046; 87086; 87177; 87806; 89055; 97001; A4663; J1956; J2270; J2405; J3370; J3490; J7030; J7040; J7050; J7060; P9016-BL; P9021

== ENCOUNTER 2016-11-24 13:48 | Emergency (ER) | payer OTHER ==
[~2016-11-24] VITALS: Ht 165.1 cm; Wt 62.1 kg
[~2016-11-24 13:48] MED LIST changes: +ACID1TAB4 PO; -ALPR2TAB7 PO; +Acetaminophen PO; +DIAZ10TA PO; +FIDA200T PO; +HYDR-3326 PO; +METR500T PO; +MULT-1045 PO; +Vancomycin Hcl PO
--- NOTE | 2016-11-24 14:00 | NUR ---
MSE DONE BY DR ROGERS AT BEDSIDE.
[2016-11-24] MEDS ORDERED: LORAZEPAM 0.5 MG TABLET PO ONE (14:15)
[2016-11-24] MEDS ORDERED: SULFAMETH/TRIMETH 800/160 MG TABLET PO ONE (14:15)
[2016-11-24 14:17] VITALS: BP 138/88
[2016-11-24] MEDS ORDERED: LORAZEPAM 1 MG TABLET ONE (14:19)
--- NOTE | 2016-11-24 14:19 | NUR ---
Patient discharged to home in stable conditon. Written and verbal after care instructions given. Patient verbalizes understanding of instructions.
[2016-11-24] MEDS ORDERED: SULFAMETH/TRIMETH 800/160 MG TABLET ONE (14:20)
== END 2016-11-24 14:19 | disposition home or self-care (01) ==
LOC: ER 14:04
DX: S50.862A Insect bite (nonvenomous) of left forearm, initial encounter (principal); L03.114 Cellulitis of left upper limb; F32.9 Major depressive disorder, single episode, unspecified; F43.10 Post-traumatic stress disorder, unspecified; F41.9 Anxiety disorder, unspecified; W57.XXXA Bitten or stung by nonvenomous insect and other nonvenomous arthropods, initial encounter; Y93.89 Activity, other specified; Y92.89 Other specified places as the place of occurrence of the external cause; Y99.8 Other external cause status
CPT/HCPCS: A4663

== ENCOUNTER 2016-12-09 17:20 | Emergency (ER) | payer OTHER ==
[~2016-12-09] VITALS: Ht 167.6 cm; Wt 63.5 kg
--- NOTE | 2016-12-09 19:16 | NUR ---
Patient discharged to home in stable conditon. Written and verbal after care instructions given. Patient verbalizes understanding of instructions.
[2016-12-09 19:18] VITALS: BP 144/74
== END 2016-12-09 19:22 | disposition home or self-care (01) ==
LOC: ER 17:20
DX: L25.9 Unspecified contact dermatitis, unspecified cause (principal); F41.9 Anxiety disorder, unspecified; F32.9 Major depressive disorder, single episode, unspecified
CPT/HCPCS: A4663

== ENCOUNTER 2016-12-11 22:30 | Emergency (ER) | payer OTHER ==
[~2016-12-11] VITALS: Ht 165.1 cm; Wt 62.1 kg
--- NOTE | 2016-12-11 23:00 | NUR ---
Dr. Isaacs at bedside for MSE,
--- NOTE | 2016-12-11 23:49 | NUR ---
Patient discharged to home in stable conditon. Written and verbal after care instructions given. Patient verbalizes understanding of instructions.
[2016-12-11 23:50] VITALS: BP 130/75
[2016-12-12] MEDS ORDERED: AMPH20TA3 PO (09:20)
== END 2016-12-11 23:50 | disposition home or self-care (01) ==
LOC: ER 22:38
DX: L30.9 Dermatitis, unspecified (principal)
CPT/HCPCS: A4663

== ENCOUNTER 2016-12-12 09:10 | Emergency (ER) | payer OTHER ==
[~2016-12-12] VITALS: Ht 165.1 cm; Wt 62.1 kg
[2016-12-12] MEDS ORDERED: AMPH20TA3 PO (09:20)
--- NOTE | 2016-12-12 09:34 | NUR ---
Patient discharged to home in stable conditon. Written and verbal after care instructions given. Patient verbalizes understanding of instructions.
== END 2016-12-12 09:36 | disposition home or self-care (01) ==
LOC: ER 09:10
DX: B95.8 Unspecified staphylococcus as the cause of diseases classified elsewhere (principal)
CPT/HCPCS: 99283; A4663

== ENCOUNTER 2016-12-28 22:41 | Emergency (ER) | payer OTHER ==
[~2016-12-28] VITALS: Ht 167.6 cm; Wt 66.2 kg
[~2016-12-28 22:41] MED LIST changes: -ACID1TAB4 PO; -Acetaminophen PO; -FIDA200T PO; -HYDR-3326 PO; -METR500T PO; -MULT-1045 PO; -Vancomycin Hcl PO
[2016-12-28] MEDS ORDERED: SULFAMETH/TRIMETH 800/160 MG TABLET PO ONE (23:15)
--- NOTE | 2016-12-28 23:25 | NUR ---
Patient discharged to home in stable conditon. Written and verbal after care instructions given. Patient verbalizes understanding of instructions. Ambulated from ER with stable gait. All belongings with patient.
[2016-12-28 23:26] VITALS: BP 137/70
[2016-12-28] MEDS ORDERED: SULFAMETH/TRIMETH 800/160 MG TABLET ONE (23:31)
== END 2016-12-28 23:29 | disposition home or self-care (01) ==
LOC: ER 22:56
DX: R21 Rash and other nonspecific skin eruption (principal); B95.8 Unspecified staphylococcus as the cause of diseases classified elsewhere
CPT/HCPCS: A4663

== ENCOUNTER 2017-01-10 11:46 | Emergency (ER) | payer OTHER ==
[~2017-01-10] VITALS: Ht 165.1 cm; Wt 65.8 kg
[2017-01-10] MEDS ORDERED: ALPR1TAB2 PO (11:55)
[2017-01-10] MEDS ORDERED: ALPRAZOLAM 0.25 MG TABLET PO ONE (13:00)
--- NOTE | 2017-01-10 13:07 | NUR ---
Patient discharged to home in stable conditon. Written and verbal after care instructions given. Patient verbalizes understanding of instructions.pt resisting to leave inspite of talking to md and multiple nurses. had to ask security to escort the pt out.
[2017-01-10] MEDS ORDERED: LORAZEPAM 0.5 MG TABLET ONE (13:12)
== END 2017-01-10 13:07 | disposition home or self-care (01) ==
LOC: ER 11:46
DX: F15.93 Other stimulant use, unspecified with withdrawal (principal); F22 Delusional disorders; F32.9 Major depressive disorder, single episode, unspecified
CPT/HCPCS: 99283; A4663

== ENCOUNTER 2017-05-30 17:16 | Emergency (ER) | payer OTHER ==
[~2017-05-30] VITALS: Ht 165.1 cm; Wt 68.0 kg
[~2017-05-30 17:16] MED LIST changes: +ALPR1TAB2 PO; -DIAZ10TA PO
[2017-05-30] MEDS ORDERED: ALPRAZOLAM 0.25 MG TABLET PO ONE (17:30)
--- NOTE | 2017-05-30 17:39 | NUR ---
PT WAS EVALUATED BY DR ROGERS. PT WAS D/C TO HOME. D/C INSTRUCTIONS GIVEN TO THE PT.
[2017-05-30 17:41] VITALS: BP 126/77
[2017-05-30] MEDS ORDERED: ONDANSETRON ODT 4 MG TAB.RAPDIS SL ONE (17:45)
[2017-05-30] MEDS ORDERED: ALPRAZOLAM 0.5 MG TABLET ONE (17:51)
[2017-05-30] MEDS ORDERED: ONDANSETRON ODT 4 MG TAB.RAPDIS ONE (17:54)
== END 2017-05-30 17:42 | disposition home or self-care (01) ==
LOC: ER 17:17
DX: Z76.0 Encounter for issue of repeat prescription (principal); B86 Scabies; F32.9 Major depressive disorder, single episode, unspecified; F43.10 Post-traumatic stress disorder, unspecified
CPT/HCPCS: 99283; A4663; Q0162

== ENCOUNTER 2017-06-04 05:39 | Emergency (ER) | payer OTHER ==
[~2017-06-04] VITALS: Ht 165.1 cm; Wt 68.0 kg
--- NOTE | 2017-06-04 07:00 | NUR ---
PT PRESNTS W/ COMPLAINTS OF N/V AND DIARRHEA X1 DAY.
--- NOTE | 2017-06-04 07:19 | NUR ---
REPORT GIVEN TO BRANDON TRAN.
--- NOTE | 2017-06-04 07:35 | NUR ---
PT WAS D/C TO HOME BY DR LE. D/C INSTRUCTIONS GIVEN TO THE PT.
[2017-06-04 07:37] VITALS: BP 132/71
== END 2017-06-04 07:38 | disposition home or self-care (01) ==
LOC: ER 05:44
DX: B76.9 Hookworm disease, unspecified (principal)
CPT/HCPCS: A4663

== ENCOUNTER 2017-06-18 02:20 | Emergency (ER) | payer OTHER ==
[~2017-06-18] VITALS: Ht 165.1 cm; Wt 68.0 kg
[2017-06-18] MEDS ORDERED: ALPRAZOLAM 0.25 MG TABLET PO ONE (03:00)
--- NOTE | 2017-06-18 03:10 | NUR ---
Patient discharged to home in stable conditon. Written and verbal after care instructions given. Patient verbalizes understanding of instructions. Ambulated from ER with stable gait. All belongings with patient. Patient to be driven home by [employer] in private vehicle.
[2017-06-18 03:16] VITALS: BP 131/81
[2017-06-18] MEDS ORDERED: ALPRAZOLAM 0.5 MG TABLET ONE (03:21)
== END 2017-06-18 03:17 | disposition home or self-care (01) ==
LOC: ER 02:24
DX: F43.10 Post-traumatic stress disorder, unspecified (principal); F13.239 Sedative, hypnotic or anxiolytic dependence with withdrawal, unspecified; F32.9 Major depressive disorder, single episode, unspecified
CPT/HCPCS: 99284; A4663

== ENCOUNTER 2017-07-12 15:54 | Emergency (ER) | payer OTHER ==
[~2017-07-12] VITALS: Ht 165.1 cm; Wt 68.0 kg
[2017-07-12] MEDS ORDERED: ALPRAZOLAM 0.5 MG TABLET ONE (17:01)
[2017-07-12] MEDS ORDERED: ONDANSETRON ODT 4 MG TAB.RAPDIS ONE (17:01)
[2017-07-12] MEDS: ALPRAZOLAM 0.25 MG TABLET PO ONE (17:06)
[2017-07-12] MEDS: ONDANSETRON ODT 4 MG TAB.RAPDIS SL ONE (17:06)
--- NOTE | 2017-07-12 17:30 | NUR ---
Patient discharged to home in stable conditon. Written and verbal after care instructions given. Patient verbalizes understanding of instructions.PT WALKS IN STEADY GAIT. PT NOT WALKING Addendum: 07/12/17 at 1730 by JACKLYN CORRECTION: PT NOT DRIVING.
[2017-10-12] MEDS ORDERED: GABAPENTIN 300 MG CAPSULE (02:39)
[2017-10-12] MEDS ORDERED: PAROXETINE HCL 40MG TABLET (02:39)
== END 2017-07-12 17:30 | disposition home or self-care (01) ==
LOC: ER 15:54
DX: F41.9 Anxiety disorder, unspecified (principal); R11.0 Nausea; Z76.0 Encounter for issue of repeat prescription; Z79.899 Other long term (current) drug therapy
CPT/HCPCS: 99283; A4663; Q0162

== ENCOUNTER 2017-08-02 18:41 | Emergency (ER) | payer OTHER ==
[~2017-08-02] VITALS: Ht 165.1 cm; Wt 65.8 kg
[2017-08-02] MEDS ORDERED: ALPRAZOLAM 0.25 MG TABLET PO ONE (19:00)
--- NOTE | 2017-08-02 19:00 | NUR ---
Received SBAR report from Drew Schilling RN. Dr. Collins at bedside for MSE. Patient came to ER for medication refill for xanax.
[2017-08-02] MEDS ORDERED: ALPRAZOLAM 0.5 MG TABLET ONE (19:06)
--- NOTE | 2017-08-02 19:12 | NUR ---
Patient discharged to home in stable conditon. Written and verbal after care instructions given. Patient verbalizes understanding of instructions. Patient ambulated out of ER with steady gait, all belongings taken, VSS, no acute signs of distress.
[2017-08-02 19:14] VITALS: BP 135/85
[2017-10-12] MEDS ORDERED: GABAPENTIN 300 MG CAPSULE (02:39)
[2017-10-12] MEDS ORDERED: PAROXETINE HCL 40MG TABLET (02:39)
== END 2017-08-02 19:14 | disposition home or self-care (01) ==
LOC: ER 18:43
DX: F19.939 Other psychoactive substance use, unspecified with withdrawal, unspecified (principal); F41.9 Anxiety disorder, unspecified; Z76.0 Encounter for issue of repeat prescription; Z79.899 Other long term (current) drug therapy
CPT/HCPCS: A4663

== ENCOUNTER 2017-08-11 08:53 | Emergency (ER) | payer OTHER ==
[~2017-08-11] VITALS: Ht 172.7 cm; Wt 72.6 kg
[2017-08-11] MEDS ORDERED: IV NORMAL SALINE 1000 ML BAG IV ONE (09:30)
[2017-08-11] MEDS ORDERED: METOCLOPRAMIDE HCL 10 MG/2 ML VIAL IV ONE (09:30)
[2017-08-11] MEDS ORDERED: METOCLOPRAMIDE HCL 10 MG/2 ML VIAL ONE (09:38)
--- NOTE | 2017-08-11 09:44 | NUR ---
Pt states he can not provide a urine specimen at this time because he feels "too dehydrated".
[2017-08-11 09:47] LABS: BASOPHILS % (AUTO) 0.6 % (0.0-2.0); EOSINOPHILS # (AUTO) 0.1 K/uL (0.0-0.7); EOSINOPHILS % (AUTO) 2.3 % (0.0-7.0); HEMOGLOBIN 15.7 g/dL (12.5-16.3); LYMPHOCYTES # (AUTO) 2.6 K/uL (20.0-40.0); LYMPHOCYTES % (AUTO) 46.2 % (20.5-51.5); MEAN CORPUSCULAR HGB CONC 35 g/dL (32.5-36.3); MEAN CORPUSCULAR VOLUME 88.7 fL (73.0-96.2); MONOCYTES # (AUTO) 0.7 K/uL (2.0-10.0); MONOCYTES % (AUTO) 12.7 % (0.0-11.0); NEUTROPHILS # (AUTO) 2.1 K/uL (1.8-8.9); NEUTROPHILS % (AUTO) 38.2 % (38.5-71.5); PLATELET COUNT (AUTO) 246 K/uL (152-348); RED BLOOD CELL COUNT(AUTO) 5.07 MIL/uL (4.06-5.63); WHITE BLOOD COUNT (AUTO) 5.5 K/uL (3.6-10.2)
[2017-08-11 09:54] LABS: ALANINE AMINOTRANSFERASE 37 U/L (16-63); ALKALINE PHOSPHATASE 61 U/L (50-136); ASPARTATE AMINOTRANSFERASE 14 U/L (15-37); BILIRUBIN,DIRECT 0.2 mg/dL (0.0-0.2); BILIRUBIN,TOTAL 4.4 mg/dL (0.2-1.0); CARBON DIOXIDE 32 mmol/L (21-32); CHLORIDE 102 mmol/L (98-107); CREATININE 1.1 mg/dL (0.6-1.3); GLUCOSE 89 mg/dL (74-106); POTASSIUM 4.2 mmol/L (3.5-5.1); TOTAL PROTEIN, SERUM 6.8 g/dL (6.4-8.2); UREA NITROGEN, BLOOD 21 mg/dL (7-18)
[2017-08-11 09:57] LABS: ACETAMINOPHEN < 2.0 ug/mL (10-30)
[2017-08-11 10:00] LABS: *BILIRUBIN,URIN NEGATIVE (NEGATIVE); *BLOOD, URINE NEGATIVE (NEGATIVE); *CLARITY,URINE CLEAR (CLEAR); *COLOR,URINE YELLOW (YELLOW); *KETONES,URINE NEGATIVE (NEGATIVE); *PROTEIN,URINE NEGATIVE (NEGATIVE); LEUKOCYTE ESTERASE ,URINE NEGATIVE (NEGATIVE); NITRITE, URINE NEGATIVE (NEGATIVE); UGLUCOSE NEGATIVE (NEGATIVE)
[2017-08-11 10:03] LABS: ETHANOL < 3 MG/DL (0-0)
--- NOTE | 2017-08-11 10:15 | NUR ---
Called [facility] for psych eval as requested by , eta 60-90 mins.
[2017-08-11 10:16] LABS: RBC,URINE 0-3 /HPF (0-3); WBC,URINE 0-3 /HPF (0-3)
--- NOTE | 2017-08-11 10:16 | NUR ---
Pt is not expressing any suicidal or homicidal ideation. Pt is resting comfortably in gurney with NAD noted.
[2017-08-11 10:17] LABS: BACTERIA,URINE FEW /HPF (NONE SEEN); SQUAMOUS EPITHELIAL CELL,UR FEW /HPF (NONE SEEN)
[2017-08-11 10:38] LABS: *AMPHETAMINE, URINE POSITIVE (NEGATIVE); *BARBITURATE, URINE NEGATIVE (NEGATIVE); *CANNABINOID, URINE POSITIVE (NEGATIVE); *COCCAINE, URINE NEGATIVE (NEGATIVE); *OPIATE, URINE NEGATIVE (NEGATIVE); *PHENCYCLIDINE SCREEN,URINE NEGATIVE (NEGATIVE)
--- NOTE | 2017-08-11 11:10 | NUR ---
Hands off report given to Tristan Mansfield LVN for lunch break.
--- NOTE | 2017-08-11 11:40 | NUR ---
Pt eloped. [facility] arrived for eval and the pt was not found in ER room 3 or outside ER.
[2017-10-12] MEDS ORDERED: GABAPENTIN 300 MG CAPSULE (02:39)
[2017-10-12] MEDS ORDERED: PAROXETINE HCL 40MG TABLET (02:39)
== END 2017-08-11 11:45 | disposition home or self-care (01) ==
LOC: ER 08:53
DX: F41.9 Anxiety disorder, unspecified (principal); F11.10 Opioid abuse, uncomplicated; Z79.899 Other long term (current) drug therapy
CPT/HCPCS: 36415; 80307; 85025; A4663; G0480; G0480-TC; J2765; J7030

== ENCOUNTER 2017-09-09 09:21 | Emergency (ER) | payer OTHER ==
[~2017-09-09] VITALS: Ht 165.1 cm; Wt 63.5 kg
[2017-09-09] MEDS ORDERED: ALPR2TAB7 PO (09:31)
[2017-09-09] MEDS ORDERED: AMPH30CA3 PO (09:31)
[2017-09-09] MEDS ORDERED: ALPRAZOLAM 0.25 MG TABLET PO ONE (10:30)
[2017-09-09] MEDS ORDERED: ALPRAZOLAM 0.5 MG TABLET ONE (10:39)
--- NOTE | 2017-09-09 10:39 | NUR ---
Patient discharged to home in stable conditon. Written and verbal after care instructions given. Patient verbalizes understanding of instructions.PT WALKS IN STEADY GAIT. PT NOT DRIVING, FATHER TO TAKE THE PT HOME.
[2017-09-09 10:41] VITALS: BP 129/70
[2017-10-12] MEDS ORDERED: PAROXETINE HCL 40MG TABLET (02:39)
[2017-10-12] MEDS ORDERED: GABAPENTIN 300 MG CAPSULE (02:39)
== END 2017-09-09 10:42 | disposition home or self-care (01) ==
LOC: ER 09:21
DX: F41.9 Anxiety disorder, unspecified (principal); F32.9 Major depressive disorder, single episode, unspecified; F11.10 Opioid abuse, uncomplicated; Z79.899 Other long term (current) drug therapy
CPT/HCPCS: A4663

== ENCOUNTER 2017-09-10 05:53 | Emergency (ER) | payer OTHER ==
[~2017-09-10] VITALS: Ht 165.1 cm; Wt 63.5 kg
[~2017-09-10 05:53] MED LIST changes: -ALPR1TAB2 PO; +ALPR2TAB7 PO; -AMPH20TA3 PO; +AMPH30CA3 PO
--- NOTE | 2017-09-10 06:50 | NUR ---
Patient discharged to home in stable conditon. Written and verbal after care instructions given. Patient verbalizes understanding of instructions. Patient able to ambulate unassisted with a steady gait. Patient left with all personal belongings.
[2017-09-10 06:56] VITALS: BP 114/84
[2017-10-12] MEDS ORDERED: GABAPENTIN 300 MG CAPSULE (02:39)
[2017-10-12] MEDS ORDERED: PAROXETINE HCL 40MG TABLET (02:39)
== END 2017-09-10 06:50 | disposition home or self-care (01) ==
LOC: ER 05:57
DX: L60.0 Ingrowing nail (principal); Z79.899 Other long term (current) drug therapy
CPT/HCPCS: 99281; A4663

== ENCOUNTER 2017-10-04 17:08 | Emergency (ER) | payer OTHER ==
[~2017-10-04] VITALS: Ht 165.1 cm; Wt 63.5 kg
[2017-10-04] MEDS ORDERED: CHLORDIAZEPOXIDE HCL 25 MG CAPSULE PO ONE (18:00)
[2017-10-04] MEDS ORDERED: CHLORDIAZEPOXIDE HCL 25 MG CAPSULE ONE (18:12)
--- NOTE | 2017-10-04 18:12 | NUR ---
Patient discharged to home in stable conditon. Written and verbal after care instructions given. Patient verbalizes understanding of instructions. Stressed follow up with pmd.
[2017-10-12] MEDS ORDERED: PAROXETINE HCL 40MG TABLET (02:39)
[2017-10-12] MEDS ORDERED: GABAPENTIN 300 MG CAPSULE (02:39)
== END 2017-10-04 18:14 | disposition home or self-care (01) ==
LOC: ER 17:10
DX: F19.939 Other psychoactive substance use, unspecified with withdrawal, unspecified (principal); F41.9 Anxiety disorder, unspecified; F32.9 Major depressive disorder, single episode, unspecified
CPT/HCPCS: 99283; A4663